=== PATIENT | male | born 1975 | race Caucasian/White ===

== ENCOUNTER 2022-08-06 09:36 | Outpatient (CLI) | payer BC, SELFPAY ==
[2022-08-06 13:36] LABS: Basophils Absolute Auto 0.04 K/uL (0.00-0.30); Basophils Percent Auto 0.7 % (0.0-3.0); Eosinophils Absolute Auto 0.23 K/uL (0.00-0.50); Eosinophils Percent Auto 3.9 % (0.0-7.0); Hematocrit 45.2 % (37.0-53.0); Immature Granulocytes Abs Auto 0.02 K/uL (0.00-0.30); Immature Granulocytes Pct Auto 0.3 %; Lymphocytes Absolute Auto 1.92 K/uL (0.90-2.90); Lymphocytes Percent Auto 32.7 % (20-44); Mean Corpuscular HGB Conc 33 gm/dL (32-36); Mean Corpuscular Hemoglobin 30 pg (26-34); Mean Corpuscular Volume 90 fL (80-100); Monocytes Percent Auto 8.5 % (0.0-11.0); Neutrophils Absolute Auto 3.17 K/uL (1.7-7.0); Neutrophils Percent Auto 53.9 % (42.0-72.0); Platelet Count* 272 K/uL (140-440); RDW Coefficient of Variation % 12.8 % (11.5-15.5); Red Blood Count 5.03 m/uL (4.30-5.90); White Blood Count* 5.88 K/uL (4.50-11.00)
[2022-08-06 13:43] LABS: Slide Review Reflex No
[2022-08-06 14:32] LABS: Chloride* 104 mmol/L (96-114); Potassium* 4.8 mmol/L (3.6-5.1); Sodium* 139 mmol/L (135-149)
[2022-08-06 14:34] LABS: Creatinine* 0.9 mg/dL (0.5-1.5); Estimated Glomerular Filt Rate 107 ml/min
[2022-08-06 14:35] LABS: Blood Urea Nitrogen* 16 mg/dL (5-24); Calcium* 9.6 mg/dL (8.4-10.6); Carbon Dioxide* 28 mmol/L (20-32); Glucose* 91 mg/dL (60-115)
[2022-08-06 15:10] LABS: Erythrocyte SedimentationRate* 2 mm/hr (2-15)
== END 2022-08-06 09:37 | disposition home or self-care (01) ==
PROVIDERS: PCP Family Medicine; Visit Provider Family Medicine
DX: Z00.00 Encounter for general adult medical examination without abnormal findings (principal); K52.9 Noninfective gastroenteritis and colitis, unspecified
CPT/HCPCS: 80048; 85025; 85651

== ENCOUNTER 2023-06-19 08:10 | Outpatient (REF) | payer BC, SELFPAY ==
[2023-06-19 09:02] LABS: Albumin* 4.7 g/dL (3.3-5.0)
[2023-06-19 09:04] LABS: Iron* 85 ug/dL (49-181)
[2023-06-19 09:05] LABS: Alanine Aminotransferase* 80 U/L (4-50); Alkaline Phosphatase* 59 U/L (40-150); Aspartate Amino Transferase* 45 U/L (12-35); Bilirubin Total* 0.5 mg/dL (0.1-1.5); Total Protein* 7.6 g/dL (6.0-8.3)
[2023-06-19 09:13] LABS: Percent Iron Saturation 23 % (20-50); Total Iron Binding Capacity 369 ug/dL (261-462)
[2023-06-19 09:53] LABS: Hepatitis C Virus Antibody* Negative (Negative)
[2023-06-20 18:38] LABS: Alpha-1-Antitrypsin 122 mg/dL (90-200)
== END 2023-06-19 08:11 | disposition home or self-care (01) ==
LOC: NPINS 08:10
PROVIDERS: PCP Family Medicine
DX: K51.20 Ulcerative (chronic) proctitis without complications (principal); K76.0 Fatty (change of) liver, not elsewhere classified
CPT/HCPCS: 76705; 80076; 82103; 82728; 83540; 83550; 86015; 86039; 86381; 86803